=== PATIENT | male | born 1990 | race Caucasian/White ===

== ENCOUNTER 2023-01-07 03:43 | Emergency (ER) | payer OTHER ==
[~2023-01-07] VITALS: Ht 172.7 cm; Wt 61.0 kg
[2023-01-07 04:05] VITALS: BP 138/60
[2023-01-07] MEDS ORDERED: GABAPENTIN 300 MG CAPSULE PO ONE (05:30)
[2023-01-07] MEDS ORDERED: LORazepam 2 MG/ML VIAL IVP ONE (05:30)
[2023-01-07] MEDS ORDERED: ONDANSETRON HCL 4 MG/2 ML VIAL IVP ONE (06:00)
== END 2023-01-07 06:39 | disposition home or self-care (01) ==
LOC: EMS 03:44
DX: F41.9 Anxiety disorder, unspecified (principal)
CPT/HCPCS: 99284; 96374; 96375; J2060; J2405

== ENCOUNTER 2023-01-25 06:24 | Emergency (ER) | payer OTHER ==
[~2023-01-25] VITALS: Ht 172.7 cm; Wt 66.0 kg
[2023-01-25] MEDS ORDERED: GABA-1181 PO (07:46)
[2023-01-25] MEDS ORDERED: ONDA4TAB96 PO (07:46)
[2023-01-25] MEDS ORDERED: CLON0.3T PO (07:46)
[2023-01-25] MEDS ORDERED: HYDR-4808 PO (07:46)
[2023-01-25] MEDS ORDERED: PROP40TA7 PO (07:46)
[2023-01-25] MEDS ORDERED: LAMO25TA25 PO (07:49)
[2023-01-25] MEDS ORDERED: ZOLP10TA8 PO (08:06)
[2023-01-25 08:27] VITALS: BP 125/80
== END 2023-01-25 09:06 | disposition home or self-care (01) ==
LOC: EMS 06:24
DX: G47.00 Insomnia, unspecified (principal); F41.9 Anxiety disorder, unspecified
CPT/HCPCS: 99283